=== PATIENT | male | born 1970 | race Caucasian/White ===

== ENCOUNTER 2018-04-10 08:27 | Day surgery (SDC) | payer BC ==
[~2018-04-10] VITALS: Ht 180.3 cm; Wt 71.7 kg
[~2018-04-10 08:27] MED LIST: LISINOPRIL10 MG PO
[2018-04-10 11:55] VITALS: BP 140/89
== END 2018-04-10 12:15 | disposition home or self-care (01) | DRG 392 ==
LOC: ENDO 08:27 → ORM 14:00 → ENDO 14:15
PROVIDERS: ATTEND Internal Medicine Gastroenterology
PROC: 0DBE8ZX Excision of Large Intestine, Via Natural or Artificial Opening Endoscopic, Diagnostic (ICD-10-PCS; principal; 2018-04-10)
DX: K57.30 Diverticulosis of large intestine without perforation or abscess without bleeding (principal); K64.4 Residual hemorrhoidal skin tags; K64.8 Other hemorrhoids; K21.9 Gastro-esophageal reflux disease without esophagitis; R13.10 Dysphagia, unspecified; I10 Essential (primary) hypertension

== ENCOUNTER 2020-11-29 13:51 | Emergency (ER) | payer BC ==
[2020-11-29] MEDS ORDERED: ULTRAM50 MG PO (16:02)
[2020-11-29 16:16] VITALS: BP 135/87
== END 2020-11-29 16:16 | disposition home or self-care (01) | DRG 556 ==
LOC: ED 13:51
DX: M79.605 Pain in left leg (principal); M54.10 Radiculopathy, site unspecified; F17.200 Nicotine dependence, unspecified, uncomplicated